=== PATIENT | male | born 1990 | race Caucasian/White ===

== ENCOUNTER 2019-12-05 15:12 | Inpatient (IN) | payer MEDICAID ==
[~2019-12-05] VITALS: Ht 180.3 cm; Wt 86.0 kg
[2019-12-05 16:36] LABS: AMPHET/METH SCREEN,URINE NEGATIVE (NEGATIVE); BARBITURATE SCREEN, URINE NEGATIVE (NEGATIVE); BENZODIAZEPINES SCREEN,URINE NEGATIVE (NEGATIVE); CANNABINOID SCREEN,URINE POSITIVE (NEGATIVE); COCAINE SCREEN,URINE NEGATIVE (NEGATIVE); METHADONE SCREEN, URINE NEGATIVE (NEGATIVE); OPIATE SCREEN,URINE NEGATIVE (NEGATIVE); PHENCYCLIDINE SCREEN,URINE NEGATIVE (NEGATIVE)
[2019-12-05] MEDS ORDERED: LORazepam 2 MG TABLET PO PRN (18:30)
[2019-12-05] MEDS ORDERED: ZOLPIDEM TARTRATE 10 MG TABLET PO PRN (18:30)
[2019-12-05] MEDS ORDERED: HALOPERIDOL 5 MG TABLET PO PRN (18:30)
[2019-12-05 20:37] VITALS: BP 149/74
[2019-12-06 08:46] VITALS: BP 142/88
[2019-12-06] MEDS ORDERED: ONDANSETRON HCL 4 MG TABLET PO PRN (09:30)
[2019-12-06] MEDS ORDERED: NICOTINE 14 MG/24 HOUR PATCH TD PRN (09:30)
[2019-12-06] MEDS ORDERED: GuaiFENesin/D-METHORPHAN [SUGAR-FREE] 200-20MG/10 ML SYRUP UDCUP PO PRN (09:30)
[2019-12-06] MEDS ORDERED: DOCUSATE SODIUM 100 MG CAPSULE PO PRN (09:30)
[2019-12-06] MEDS ORDERED: MAGNESIUM HYDROXIDE SUSPENSION 30 ML UDCUP PO PRN (09:30)
[2019-12-06] MEDS ORDERED: LOPERAMIDE HCL 2 MG CAPSULE PO PRN (09:30)
[2019-12-06] MEDS ORDERED: ACETAMINOPHEN 325 MG TABLET PO PRN (09:30)
[2019-12-06] MEDS ORDERED: MAG HYDROX/AL HYDROX/SIMETH ES 30 ML SUSPENSION UDCUP PO PRN (09:30)
[2019-12-06] MEDS ORDERED: PETROLATUM,WHITE 28 GM JELLY TP PRN (09:30)
[2019-12-06] MEDS ORDERED: IBUPROFEN 400 MG TABLET PO PRN (09:30)
[2019-12-06] MEDS ORDERED: CloNIDine HCL 0.1 MG TABLET PO PRN (09:30)
[2019-12-06] MEDS ORDERED: ALBUTEROL SULFATE HFA 90 MCG/PUFF 8 GM INHALER IH PRN (09:30)
[2019-12-06 16:23] VITALS: BP 132/75
[2019-12-07 05:23] VITALS: BP 152/70
[2019-12-07 09:32] VITALS: BP 143/82
[2019-12-07 16:37] VITALS: BP 145/85
[2019-12-08 05:46] VITALS: BP 139/89
[2019-12-08 09:03] VITALS: BP 133/68
[2019-12-08 16:38] VITALS: BP 145/65
[2019-12-09 01:31] VITALS: BP 134/70
[2019-12-09 09:19] VITALS: BP 140/88
[2019-12-09] MEDS: RisperiDONE 1 MG TABLET PO SCH (16:35)
[2019-12-09 18:37] VITALS: BP 121/61
[2019-12-10 00:58] VITALS: BP 120/77
[2019-12-10] MEDS: RisperiDONE 1 MG TABLET PO SCH ×2 (09:00→16:19)
[2019-12-10 10:24] VITALS: BP 139/77
[2019-12-10 16:52] VITALS: BP 123/67
[2019-12-11 00:55] VITALS: BP 149/96
[2019-12-11] MEDS: RisperiDONE 1 MG TABLET PO SCH ×2 (09:00→16:28)
[2019-12-11 10:01] VITALS: BP 142/87
[2019-12-11 16:42] VITALS: BP 144/90
[2019-12-12 03:15] VITALS: BP 126/79
[2019-12-12] MEDS: RisperiDONE 1 MG TABLET PO SCH ×2 (08:08→17:00)
[2019-12-12 10:03] VITALS: BP 134/80
[2019-12-12 17:05] VITALS: BP 134/92
[2019-12-13 00:31] VITALS: BP 143/83
[2019-12-13 08:38] VITALS: BP 139/74
[2019-12-13] MEDS: RisperiDONE 1 MG TABLET PO SCH ×2 (08:51→16:22)
[2019-12-13 16:35] VITALS: BP 138/81
[2019-12-14 01:48] VITALS: BP 123/70
[2019-12-14 08:55] VITALS: BP 131/75
[2019-12-14] MEDS: RisperiDONE 1 MG TABLET PO SCH ×2 (09:00→16:03)
[2019-12-14 16:29] VITALS: BP 150/71
[2019-12-15 00:48] VITALS: BP 134/61
[2019-12-15 08:39] VITALS: BP 129/72
[2019-12-15] MEDS: RisperiDONE 1 MG TABLET PO SCH ×2 (09:00→16:51)
[2019-12-15 17:44] VITALS: BP 125/79
[2019-12-16 06:16] VITALS: BP 125/76
[2019-12-16] MEDS: RisperiDONE 1 MG TABLET PO SCH ×2 (08:52→15:48)
[2019-12-16 08:55] VITALS: BP 120/63
[2019-12-16 16:29] VITALS: BP 142/79
[2019-12-17] MEDS: RisperiDONE 1 MG TABLET PO SCH ×2 (09:00→17:00)
[2019-12-17 09:13] VITALS: BP 132/62
[2019-12-17 17:25] VITALS: BP 128/76
[2019-12-18 01:30] VITALS: BP 132/67
[2019-12-18 08:57] VITALS: BP 118/63
[2019-12-18] MEDS: RisperiDONE 1 MG TABLET PO SCH ×2 (09:00→16:20)
[2019-12-18 17:00] VITALS: BP 113/73
[2019-12-19 01:35] VITALS: BP 122/76
[2019-12-19] MEDS: RisperiDONE 1 MG TABLET PO SCH ×2 (08:26→17:00)
[2019-12-19 11:35] VITALS: BP 120/70
[2019-12-19 16:37] VITALS: BP 127/63
[2019-12-20 03:21] VITALS: BP 120/66
[2019-12-20] MEDS: RisperiDONE 1 MG TABLET PO SCH ×2 (09:00→16:34)
[2019-12-20 09:29] VITALS: BP 110/56
[2019-12-20 19:42] VITALS: BP 120/56
[2019-12-21 03:57] VITALS: BP 122/62
[2019-12-21] MEDS: RisperiDONE 1 MG TABLET PO SCH ×2 (08:35→17:00)
[2019-12-21 09:34] VITALS: BP 117/51
[2019-12-21 18:07] VITALS: BP 118/67
[2019-12-22 03:20] VITALS: BP 132/77
[2019-12-22 08:53] VITALS: BP 116/66
[2019-12-22] MEDS: RisperiDONE 1 MG TABLET PO SCH ×2 (09:00→16:30)
[2019-12-22 17:16] VITALS: BP 117/57
[2019-12-23] MEDS: RisperiDONE 1 MG TABLET PO SCH ×2 (07:56→16:40)
[2019-12-23 09:38] VITALS: BP 127/79
[2019-12-23 16:17] VITALS: BP 140/68
[2019-12-23 16:21] VITALS: BP 140/68
[2019-12-24 02:25] VITALS: BP 130/78
[2019-12-24 08:45] VITALS: BP 113/78
[2019-12-24] MEDS: RisperiDONE 1 MG TABLET PO SCH ×2 (09:00→16:21)
[2019-12-24 16:20] VITALS: BP 133/77
[2019-12-25 08:21] VITALS: BP 150/79
[2019-12-25] MEDS: RisperiDONE 1 MG TABLET PO SCH ×2 (09:00→16:07)
[2019-12-25 16:00] VITALS: BP 112/71
[2019-12-26 02:10] VITALS: BP 149/73
[2019-12-26] MEDS: RisperiDONE 1 MG TABLET PO SCH ×2 (08:25→16:40)
[2019-12-26 09:26] VITALS: BP 125/78
[2019-12-27 08:12] VITALS: BP 126/73
[2019-12-27] MEDS: RisperiDONE 1 MG TABLET PO SCH ×2 (08:16→16:27)
[2019-12-28 02:12] VITALS: BP 119/73
[2019-12-28] MEDS: RisperiDONE 1 MG TABLET PO SCH ×2 (08:11→16:49)
[2019-12-28 08:54] VITALS: BP 148/76
[2019-12-28 16:36] VITALS: BP 143/77
[2019-12-29 01:48] VITALS: BP 122/73
[2019-12-29] MEDS: RisperiDONE 1 MG TABLET PO SCH ×2 (09:00→16:27)
[2019-12-29 17:23] VITALS: BP 132/75
[2019-12-30 02:08] VITALS: BP 130/76
[2019-12-30 08:52] VITALS: BP 120/66
[2019-12-30] MEDS: RisperiDONE 1 MG TABLET PO SCH ×2 (09:00→16:11)
[2019-12-30 19:17] VITALS: BP 130/80
[2019-12-31 08:56] VITALS: BP 119/89
[2019-12-31] MEDS: RisperiDONE 1 MG TABLET PO SCH (09:00)
== END 2019-12-31 14:08 | disposition home or self-care (01) | DRG 885 ==
LOC: EMS 15:14 → 3EI 19:33 → 3EC 12-22 17:00 → 3EI 12-28 21:23
PROVIDERS: ADMIT Psychiatry & Neurology Child & Adolescent Psychiatry; ATTEND Psychiatry & Neurology Child & Adolescent Psychiatry
DX: F20.0 Paranoid schizophrenia (principal); F10.10 Alcohol abuse, uncomplicated; Z71.41 Alcohol abuse counseling and surveillance of alcoholic; K59.00 Constipation, unspecified; Z81.8 Family history of other mental and behavioral disorders; Z87.891 Personal history of nicotine dependence; Z91.14 Patient's other noncompliance with medication regimen

== ENCOUNTER 2020-09-07 08:49 | Inpatient (IN) | payer MEDICAID ==
[~2020-09-07] VITALS: Ht 180.3 cm; Wt 82.6 kg
[2020-09-07 09:30] LABS: BASOPHILS % (AUTO) 0.6 % (0.0-2.0); EOSINOPHILS % (AUTO) 2.1 % (1.0-6.0); HEMATOCRIT 41.4 % (41-53); LYMPHOCYTES # (AUTO) 1.5 K/uL (1.0-4.8); LYMPHOCYTES % (AUTO) 25.3 % (22.0-44.0); MEAN CORPUSCULAR HEMOGLOBIN 30.4 pg (26.0-34.0); MEAN CORPUSCULAR HGB CONC 33.7 G/dL (31.0-37.0); MEAN CORPUSCULAR VOLUME 90 fL (80-100); MONOCYTES # (AUTO) 0.5 K/uL (0.1-1.0); MONOCYTES % (AUTO) 8.3 % (2.0-9.0); NEUTROPHILS # (AUTO) 3.9 K/uL (1.8-7.7); NEUTROPHILS % (AUTO) 63.7 % (40.0-70.0); PLATELET COUNT (AUTO) 200 K/uL (150-450); RED BLOOD CELL COUNT(AUTO) 4.59 MIL/uL (4.50-5.90); RED CELL DISTRIBUTION WIDTH 12.8 % (11.5-14.5)
[2020-09-07 09:44] LABS: ANION GAP 2 mmol/L (8-16); CALCIUM, TOTAL 8.6 mg/dL (8.8-10.5); CARBON DIOXIDE 29 mmol/L (22-29); CHLORIDE 105 mmol/L (98-107); CREATININE 0.97 mg/dL (0.60-1.30); GLOMERULAR FILTR. RATE CALC > 60 mL/min (>60); GLUCOSE,RANDOM 130 mg/dL (70-110); POTASSIUM 4.3 mmol/L (3.5-5.1); SODIUM SERUM 136 mmol/L (136-145); UREA NITROGEN, BLOOD 20 mg/dL (7-18)
[2020-09-07 09:52] LABS: ALANINE AMINOTRANSFERASE 26 U/L (12-78); ALBUMIN 3.8 g/dL (3.4-5.0); ALKALINE PHOSPHATASE 69 U/L (46-116); ASPARTATE AMINOTRANSFERASE 15 U/L (15-37); TOTAL PROTEIN, SERUM 7.3 g/dL (6.4-8.2)
[2020-09-07] MEDS ORDERED: LORazepam 2 MG TABLET PO ONE (11:00)
[2020-09-07 11:25] LABS: COVID AG,FIA SOURCE NASOPHARYNGEAL
[2020-09-07] MEDS: LORazepam 2 MG TABLET PO PRN ×2 (15:23→22:15)
[2020-09-07 18:45] VITALS: BP 119/77
[2020-09-07] MEDS ORDERED: INFLUENZA VIRUS VACCINE QVS 2020-21 (6MO+)/PF 60 MCG/0.5 ML SYRINGE IM ONE (19:45)
[2020-09-07] MEDS ORDERED: ONDANSETRON HCL 4 MG/2 ML VIAL IM PRN (21:45)
[2020-09-07] MEDS: ZOLPIDEM TARTRATE 10 MG TABLET PO PRN (22:15)
[2020-09-08 05:00] VITALS: BP 134/91
[2020-09-08] MEDS ORDERED: ALBUTEROL SULFATE HFA 90 MCG/PUFF 8 GM INHALER IH PRN (07:15)
[2020-09-08] MEDS ORDERED: MAGNESIUM HYDROXIDE SUSPENSION 30 ML UDCUP PO PRN (07:15)
[2020-09-08] MEDS ORDERED: LOPERAMIDE HCL 2 MG CAPSULE PO PRN (07:15)
[2020-09-08] MEDS ORDERED: DOCUSATE SODIUM 100 MG CAPSULE PO PRN (07:15)
[2020-09-08] MEDS ORDERED: PETROLATUM,WHITE 28 GM JELLY TP PRN (07:15)
[2020-09-08] MEDS ORDERED: MAG HYDROX/AL HYDROX/SIMETH ES 30 ML SUSPENSION UDCUP PO PRN (07:15)
[2020-09-08] MEDS ORDERED: GuaiFENesin/D-METHORPHAN [SUGAR-FREE] 200-20MG/10 ML SYRUP UDCUP PO PRN (07:15)
[2020-09-08] MEDS ORDERED: ONDANSETRON HCL 4 MG TABLET PO PRN (07:15)
[2020-09-08] MEDS ORDERED: NICOTINE 14 MG/24 HOUR PATCH TD PRN (07:15)
[2020-09-08] MEDS ORDERED: CloNIDine HCL 0.1 MG TABLET PO PRN (07:15)
[2020-09-08] MEDS ORDERED: ACETAMINOPHEN 325 MG TABLET PO PRN (07:15)
[2020-09-08 08:09] VITALS: BP 128/78
[2020-09-08] MEDS ORDERED: BACITRACIN 28 GM OINTMENT TP SCH (09:00)
[2020-09-08] MEDS: BACITRACIN 28 GM OINTMENT TP SCH ×2 (09:45→17:02)
[2020-09-08] MEDS: LORazepam 2 MG TABLET PO PRN ×2 (09:46→20:39)
[2020-09-08] MEDS: HALOPERIDOL 5 MG TABLET PO PRN (10:49)
[2020-09-08 14:37] VITALS: BP 132/82
[2020-09-08] MEDS: CYCLOBENZAPRINE HCL 10 MG TABLET PO PRN (14:41)
[2020-09-08 16:17] VITALS: BP 130/81
[2020-09-08] MEDS: OLANZapine 10 MG TABLET PO SCH (20:38)
[2020-09-09 02:35] VITALS: BP 109/70
[2020-09-09] MEDS: BACITRACIN 28 GM OINTMENT TP SCH ×2 (08:32→16:08)
[2020-09-09 08:38] VITALS: BP 119/77
[2020-09-09 16:12] VITALS: BP 105/66
[2020-09-09] MEDS: OLANZapine 10 MG TABLET PO SCH (20:22)
[2020-09-09] MEDS: ZOLPIDEM TARTRATE 10 MG TABLET PO PRN (20:22)
[2020-09-09] MEDS: LORazepam 2 MG TABLET PO PRN (20:23)
[2020-09-10 05:05] VITALS: BP 110/70
[2020-09-10 08:13] VITALS: BP 105/64
[2020-09-10] MEDS: LORazepam 2 MG TABLET PO PRN (08:36)
[2020-09-10] MEDS: BACITRACIN 28 GM OINTMENT TP SCH ×2 (08:36→17:00)
[2020-09-10 10:02] VITALS: BP 105/77
[2020-09-10] MEDS: CYCLOBENZAPRINE HCL 10 MG TABLET PO PRN (10:02)
[2020-09-10 16:12] VITALS: BP 125/68
[2020-09-10] MEDS ORDERED: LORazepam 2 MG/ML VIAL ONE (16:54)
[2020-09-10] MEDS ORDERED: HALOPERIDOL LACTATE 5 MG/ML VIAL ONE (16:54)
[2020-09-10] MEDS ORDERED: LORazepam 2 MG/ML VIAL IM ONE (17:00)
[2020-09-10] MEDS ORDERED: HALOPERIDOL LACTATE 5 MG/ML VIAL IM ONE (17:00)
[2020-09-10] MEDS: OLANZapine 10 MG TABLET PO SCH (20:18)
[2020-09-11 02:29] VITALS: BP 118/62
[2020-09-11 08:04] VITALS: BP 119/58
[2020-09-11] MEDS: BACITRACIN 28 GM OINTMENT TP SCH ×2 (08:59→17:08)
[2020-09-11 11:15] VITALS: BP 127/64
[2020-09-11] MEDS: CYCLOBENZAPRINE HCL 10 MG TABLET PO PRN (11:20)
[2020-09-11] MEDS: LORazepam 2 MG TABLET PO PRN ×2 (11:20→17:08)
[2020-09-11] MEDS: HALOPERIDOL 5 MG TABLET PO PRN ×2 (12:02→17:09)
[2020-09-11 17:52] VITALS: BP 128/80
[2020-09-11] MEDS: OLANZapine 10 MG TABLET PO SCH (20:38)
[2020-09-11] MEDS: HALOPERIDOL 5 MG TABLET PO SCH (20:39)
[2020-09-11] MEDS: ZOLPIDEM TARTRATE 10 MG TABLET PO PRN (20:39)
[2020-09-12 01:39] VITALS: BP 131/72
[2020-09-12 08:18] VITALS: BP 109/61
[2020-09-12] MEDS: BACITRACIN 28 GM OINTMENT TP SCH ×2 (08:39→16:35)
[2020-09-12] MEDS: CYCLOBENZAPRINE HCL 10 MG TABLET PO PRN (12:20)
[2020-09-12] MEDS: IBUPROFEN 400 MG TABLET PO PRN ×2 (12:54→21:18)
[2020-09-12 16:20] VITALS: BP 108/56
[2020-09-12] MEDS: LORazepam 2 MG TABLET PO PRN (18:47)
[2020-09-12] MEDS: HALOPERIDOL 5 MG TABLET PO SCH (20:22)
[2020-09-12] MEDS: OLANZapine 10 MG TABLET PO SCH (20:23)
[2020-09-12] MEDS: ZOLPIDEM TARTRATE 10 MG TABLET PO PRN (20:23)
[2020-09-12 21:19] VITALS: BP 118/66
[2020-09-13 08:11] VITALS: BP 110/62
[2020-09-13] MEDS ORDERED: OLAN10TA3 PO (09:10)
[2020-09-13] MEDS ORDERED: HALO5TAB2 PO (09:10)
[2020-09-13] MEDS: BACITRACIN 28 GM OINTMENT TP SCH (10:04)
[2020-09-13] MEDS: IBUPROFEN 400 MG TABLET PO PRN (10:34)
== END 2020-09-13 11:45 | disposition home or self-care (01) | DRG 750 ==
LOC: EMS 08:49 → B3A 15:29 → 2WR 15:40 → B3A 16:37
PROVIDERS: ADMIT Psychiatry & Neurology Psychiatry; ATTEND Psychiatry & Neurology Psychiatry
DX: F25.1 Schizoaffective disorder, depressive type (principal); F31.9 Bipolar disorder, unspecified; F43.10 Post-traumatic stress disorder, unspecified; K59.00 Constipation, unspecified; R45.850 Homicidal ideations; R45.851 Suicidal ideations; Z20.828 Contact with and (suspected) exposure to other viral communicable diseases; F41.9 Anxiety disorder, unspecified; R73.9 Hyperglycemia, unspecified; F99 Mental disorder, not otherwise specified; F17.210 Nicotine dependence, cigarettes, uncomplicated; Z91.5 Personal history of self-harm; Z28.82 Immunization not carried out because of caregiver refusal
CPT/HCPCS: 87426; G0480; J1630; J2060